=== PATIENT | female | born 2000 | race Caucasian/White ===

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

== ENCOUNTER → 2020-11-01 | Outpatient (CLI) | payer OTHER ==
--- NOTE | 2020-11-01 16:04 | US ---
EXAMINATION TYPE: US OB >= 14 wk fetus DATE OF EXAM: 11/01/2020 COMPARISON: NONE HISTORY: O36.62XO Large for dates 2nd trimester TECHNIQUE: EXAM MEASUREMENTS: GESTATIONAL AGE / DATING Physician Established: 18 weeks 3 days EDC 04-01-21 Dates by LMP: pt unsure of date Dates by First Scan: not available Dates by Current Scan for: (17 weeks/2 days) EDC: 04-09-21 SURVEY IUP: Single PLACENTA: Anterior PREVIA: No previa ELVI: 13.6 cm CERVICAL LENGTH (transabdominal: norm > 3.0cm): 3.4 cm BIOMETRY PRESENTATION: LIE: breech BPD: 3.7 cm 17 weeks / 3 days HC: 14.2 cm 17 weeks / 3 days AC: 11.2 cm 17 weeks / 0 days FL: 2.5 cm 17 weeks / 3 days ESTIMATED WEIGHT IN GRAMS: 187 grams ESTIMATED WEIGHT IN LBS/OZ: 0 lbs. 7 oz. WEIGHT PERCENTAGE BASED ON ESTABLISHED DATE: <3% HC/AC: 1.3 FL/AC: 21.9 HEART RATE: 144 bpm RHYTHM: Normal IMPRESSIONS: 1. Single intrauterine gestation estimated at 17 weeks 2 days gestation based on current ultrasound m easurements. Cardiac activity measures 144 bpm. 2. Based on current measurements weight is less than 3rd percentile. Close monitoring is recomm ended.
== END | disposition home or self-care (01) ==
LOC: RADUSWWP 14:49
PROVIDERS: ATTEND Obstetrics & Gynecology
DX: O36.62X0 Maternal care for excessive fetal growth, second trimester, not applicable or unspecified (principal); Z3A.17 17 weeks gestation of pregnancy
CPT/HCPCS: 76805

== ENCOUNTER 2021-01-04 20:35 | Outpatient (CLI) | payer OTHER ==
[2021-01-04 21:36] VITALS: BP 138/79; PULSE 104; RESP 16; TEMP 97.5
--- NOTE | 2021-01-05 14:03 | P.MSEPDOC ---
Presenting Problems - Arrival Data Date of Arrival on Unit: 01/04/21 Time of Arrival on Unit: 20:35 Mode of Transport: Ambulatory - Complaint OB-Reason for Admission/Chief Complaint: Vaginal Bleeding Comment: Patient arrives to triage to be seen for spotting. Patient states that she. shaved earlier this evening at 1900 and was unsure if bleeding was coming from her vagina or if she nicked something. Patient states there was a scant amount the size of a dime seen on toilet paper after wiping at 1930. Medical History - Information : 2 Para: 1 Term: 1 : 0 Abortions: Spontaneous or Elective: 0 Number of Living Children: 1 - Gestational Age Gestational Age by AJ (wks/days): 28 Weeks and 4 Days Review of Systems - Review of Systems Constitutional: No problems Breast: No problems ENT: No problems Cardiovascular: No problems Respiratory: No problems Gastrointestinal: No problems Genitourinary: No problems Musculoskeletal: No problems Neurological: No problems Skin: No problems Vital Signs - Temperature Temperature: 97.5 F Temperature Source: Temporal Artery Scan - Pulse Right Brachial Pulse Rate: 104 Pulse Assessment Method: Automatic Cuff - Respirations Respiratory Rate: 16 - Blood Pressure Right Arm Blood Pressure: 138/79 Blood Pressure Mean: 98 Blood Pressure Source: Automatic Cuff Medical Screen Scoring (Pre) - Cervical Exam Dilation: Exam Deferred Effacement: Exam Deferred Membranes: Intact - Uterine Contractions Frequency: N/A Duration: N/A Intensity: N/A - Maternal Vital Signs Maternal Temperature: N/A Maternal Blood Pressure: N/A Signs of Preeclampsia: N/A Maternal Respirations: N/A - Maternal Trauma Maternal Trauma: N/A - Assessment - Baby A Baseline FHR: 140 Heart Rate - NICHD Category: Category I (Normal) = 0 NST: Reactive Position: N/A Station: N/A - Total Score - Baby A Total Score - Baby A: 0 - Total Score - Baby B Total Score - Baby B: 0 - Total Score - Baby C Total Score - Baby C: 0 - Level of Risk - Baby A Level of Risk - Baby A: Low (0-5) - Level of Risk - Baby B Level of Risk - Baby B: Low (0-5) - Level of Risk - Baby C Level of Risk - Baby C: Low (0-5) Physician Notification (Pre) - Physician Notified Physician Notified Date: 01/04/21 Physician Notified Time: 21:00 New Order Received: Yes (discharge orders) - Notification Comment Comment: Dr. Perry called with report. Patient presents to triage for spotting, upon exam. no blood noted vaginally, small tear with visible blood noted on righ labia. NST. reactive with no contractions noted. Patient denies pain. No order for vaginal exam. patient approved for discharge, cut should heal on own or use abd cream. Disposition - Disposition OB Disposition: Discharge to home Discharge Date: 01/04/21 Discharge Time: 21:09 I agree with the RN Medical Screening Exam: Yes Case reviewed; plan agreed upon as documented in EMR&OBIX.: Yes Diagnosis: OTHER SKIN CHANGES
== END 2021-01-04 21:09 | disposition home or self-care (01) ==
LOC: FBPOP 20:35
PROVIDERS: ATTEND Obstetrics & Gynecology
DX: O99.713 Diseases of the skin and subcutaneous tissue complicating pregnancy, third trimester (principal); Z3A.28 28 weeks gestation of pregnancy
CPT/HCPCS: 59025; G0463; 99213

== ENCOUNTER → 2021-02-05 | Outpatient (CLI) | payer OTHER ==
--- NOTE | 2021-02-05 12:41 | US ---
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 HEART RATE: 142 bpm RHYTHM: Normal ELVI: 12.3 DIAPHRAGM IMAGED: yes BPP SCORIN. Breathin (1 episode of breathing of 30 second duration in 30 minutes of scanning time) 2. Movement: 2 (at least 3 discrete body movements in 30 minutes) 3. Tone: 2 (1 episode of active flexion/extension of limb) 4. ELVI: 2 (ELVI index > 5cm) fetus had head positioned posteriorly and could not assess nasal bone. TOTAL SCORE: 8 / 8 Impression: Normal range.
== END ==
LOC: FBPOP 11:25
PROVIDERS: ATTEND Obstetrics & Gynecology
DX: O35.8XX1 Maternal care for other (suspected) fetal abnormality and damage, fetus 1 (principal); Z3A.33 33 weeks gestation of pregnancy; Z88.2 Allergy status to sulfonamides
CPT/HCPCS: 76819

== ENCOUNTER 2021-02-12 10:53 | Outpatient (CLI) | payer OTHER ==
--- NOTE | 2021-02-12 11:58 | US ---
EXAMINATION TYPE: US OB BPP wo non-stress DATE OF EXAM: 02/12/2021 COMPARISON: NONE CLINICAL HISTORY: SGA, Increased risk downs. EXAM PERFORMED: Transabdominal (TA) BPP PARAMETERS: PRESENTATION: Vertex LIE: Longitudinal?? HEART RATE: 136 bpm RHYTHM: Normal ELVI: 10.5cm DIAPHRAGM IMAGED: yes BPP SCORIN. Breathin (1 episode of breathing of 30 second duration in 30 minutes of scanning time) 2. Movement: 2 (at least 3 discrete body movements in 30 minutes) 3. Tone: 2 (1 episode of active flexion/extension of limb) 4. ELVI: 2 (ELVI index > 5cm) TOTAL SCORE: 8 / 8 IMPRESSION: 1. Biophysical profile score is 8 out of 8. heart rate is 136 bpm. Amniotic fluid index is 10.5 cm.
--- NOTE | 2021-02-12 12:04 | US ---
EXAMINATION TYPE: US OB >= 14 wk fetus DATE OF EXAM: 02/12/2021 COMPARISON: None CLINICAL HISTORY: EFW EFW TECHNIQUE: Transabdominal (TA) GESTATIONAL AGE / DATING Physician Established (34 weeks/1 days) EDC: 03/25/21 Dates by LMP: LMP unknown Dates by Current Scan (34 weeks/2 days) EDC: 03/24/21 SURVEY IUP: Single PLACENTA: Posterior PREVIA: No Previa ELVI: 10.5 cm Normal CERVICAL LENGTH (transabdominal: norm > 3.0cm): 3.4 cm BIOMETRY PRESENTATION: Vertex LIE: Longitudinal BPD: 8.4 cm 34 weeks / 0 days HC: 31.0 cm 34 weeks / 5 days AC: 29.7 cm 33 weeks / 6 days FL: 6.6 cm 34 weeks / 1 days ESTIMATED WEIGHT IN GRAMS: 2307 grams ESTIMATED WEIGHT IN LBS/OZ: 5 lbs. 1 oz. WEIGHT PERCENTAGE BASED ON ESTABLISHED DATES: 37% HC/AC: 1.04 Normal FL/AC: 22% Normal HEART RATE: 139 bpm RHYTHM: Normal IMPRESSION: 1 single intrauterine in cephalic position with posterior placenta. No evidence of placenta previa. Amniotic fluid adnexa is 10.5 cm. Average ultrasound gestational age is 34 weeks and 2 days. 2. Weight percentage based established dates is 37th percentile.
[2021-02-12 12:15] VITALS: BP 123/71; PULSE 106; RESP 14; TEMP 96.7
--- NOTE | 2021-02-13 09:01 | P.MSEPDOC ---
Presenting Problems - Arrival Data Date of Arrival on Unit: 02/12/21 Time of Arrival on Unit: 11:00 Mode of Transport: Ambulatory - Complaint OB-Reason for Admission/Chief Complaint: Other Comment: Sent from office for BPP Medical History - Information : 2 Para: 1 Term: 1 : 0 Abortions: Spontaneous or Elective: 0 Number of Living Children: 1 - Gestational Age Gestational Age by AJ (wks/days): 34 Weeks and 1 Days - History Comment: SGA Review of Systems - Review of Systems Constitutional: No problems Breast: No problems ENT: No problems Cardiovascular: No problems Respiratory: No problems Gastrointestinal: No problems Genitourinary: No problems Musculoskeletal: No problems Neurological: No problems Skin: No problems Vital Signs - Temperature Temperature: 96.7 F Temperature Source: Tympanic - Pulse Right Brachial Pulse Rate: 106 Pulse Assessment Method: Pulse Oximetry - Respirations Respiratory Rate: 14 Oxygen Delivery Method: Room Air - Blood Pressure Right Arm Blood Pressure: 123/71 Blood Pressure Mean: 88 Blood Pressure Source: Automatic Cuff Medical Screen Scoring (Pre) - Cervical Exam Dilation: Exam Deferred Effacement: Exam Deferred Membranes: Intact - Uterine Contractions Frequency: N/A Duration: N/A Intensity: N/A - Maternal Vital Signs Maternal Temperature: N/A Maternal Blood Pressure: N/A Signs of Preeclampsia: N/A Maternal Respirations: N/A - Maternal Trauma Maternal Trauma: N/A - Assessment - Baby A Baseline FHR: 135 Heart Rate - NICHD Category: Category I (Normal) = 0 NST: Reactive Position: N/A Station: N/A - Total Score - Baby A Total Score - Baby A: 0 - Total Score - Baby B Total Score - Baby B: 0 - Total Score - Baby C Total Score - Baby C: 0 - Level of Risk - Baby A Level of Risk - Baby A: Low (0-5) - Level of Risk - Baby B Level of Risk - Baby B: Low (0-5) - Level of Risk - Baby C Level of Risk - Baby C: Low (0-5) Physician Notification (Pre) - Physician Notified Physician Notified Date: 02/12/21 Physician Notified Time: 12:00 New Order Received: Yes - Notification Comment Comment: d/c home to f/up at regular appt Disposition - Disposition OB Disposition: Discharge to home Discharge Date: 02/12/21 Discharge Time: 12:00 I agree with the RN Medical Screening Exam: Yes Case reviewed; plan agreed upon as documented in EMR&OBIX.: Yes Diagnosis: RELATED CONDITIONS, UNSPECIFIED, THIRD TRIMESTER
== END 2021-02-12 12:00 | disposition home or self-care (01) ==
LOC: FBPOP 10:53
PROVIDERS: ATTEND Obstetrics & Gynecology
DX: O26.93 Pregnancy related conditions, unspecified, third trimester (principal); Z3A.34 34 weeks gestation of pregnancy; Z88.2 Allergy status to sulfonamides
CPT/HCPCS: 59025; 76805; 76819

== ENCOUNTER 2021-02-19 08:55 | Outpatient (CLI) | payer OTHER ==
[2021-02-19 10:21] VITALS: BP 122/68; PULSE 104; RESP 16; TEMP 98.2
--- NOTE | 2021-02-19 10:39 | US ---
EXAMINATION TYPE: US OB BPP wo non-stress DATE OF EXAM: 02/19/2021 COMPARISON: US 02/12/2021 CLINICAL HISTORY: SGA. EXAM PERFORMED: Transabdominal (TA) BPP PARAMETERS: PRESENTATION: Vertex LIE: Longitudinal?? HEART RATE: 140 bpm RHYTHM: Normal ELVI: 11.3 DIAPHRAGM IMAGED: Yes BPP SCORIN. Breathin (1 episode of breathing of 30 second duration in 30 minutes of scanning time) 2. Movement: 2 (at least 3 discrete body movements in 30 minutes) 3. Tone: 2 (1 episode of active flexion/extension of limb) 4. ELVI: 2 (ELVI index > 5cm) TOTAL SCORE: 8 / 8
== END 2021-02-19 10:09 | disposition home or self-care (01) ==
LOC: FBPOP 08:55
PROVIDERS: ATTEND Obstetrics & Gynecology
DX: P05.10 Newborn small for gestational age, unspecified weight (principal); Z88.2 Allergy status to sulfonamides
CPT/HCPCS: 59025; 76819; G0463; 99213

== ENCOUNTER 2021-02-27 11:24 | Outpatient (CLI) | payer OTHER ==
[2021-02-27 14:08] VITALS: BP 116/65; PULSE 82; RESP 16; TEMP 97.1
--- NOTE | 2021-02-27 14:26 | US ---
EXAMINATION TYPE: US OB >= 14 wk fetus DATE OF EXAM: 02/27/2021 COMPARISON: 02/12/2021 CLINICAL HISTORY: growth restriction, TECHNIQUE: Transabdominal (TA) GESTATIONAL AGE / DATING Physician Established: (36 weeks/2 days) EDC: 03/25/2021 Dates by LMP: (36 weeks/2 days) EDC: 03/25/2021 Dates by First Scan: 34 ( weeks/1 day) EDC: 04/09/2021 Dates by Current Scan: (34 weeks/4 days) EDC: 04/06/2021 Beta HCG (if available): NA SURVEY IUP: Single PLACENTA: Posterior PREVIA: No Previa ELVI: 10.1 cm Normal CERVICAL LENGTH (transabdominal: norm > 3.0cm): 3.7 cm BIOMETRY PRESENTATION: Vertex LIE: Longitudinal BPD: 8.80 cm 35 weeks / 4 days HC: 31.14 cm 34 weeks / 6 days AC: 30.27 cm 34 weeks / 2 days FL: 6.79 cm 34 weeks / 6 days ESTIMATED WEIGHT IN GRAMS: 2470.0 grams ESTIMATED WEIGHT IN LBS/OZ: 5 lbs. 7 oz. WEIGHT PERCENTAGE BASED ON ESTABLISHED DATES: 13.4% HC/AC: 1.03 Normal FL/AC: 22.42 Normal HEART RATE: 121 bpm RHYTHM: Normal Single, viable IUP,34 weeks/4 days, EDC: 04/06/2021, [id number]. IMPRESSION: Single viable intrauterine 34 weeks 4 days with a heart rate of 121 bpm
--- NOTE | 2021-02-27 14:40 | US ---
EXAMINATION TYPE: US OB BPP wo non-stress DATE OF EXAM: 02/27/2021 COMPARISON: US CLINICAL HISTORY: growth restriction. SGA EXAM PERFORMED: Transabdominal (TA) BPP PARAMETERS: PRESENTATION: Vertex LIE: Longitudinal?? HEART RATE: 121 bpm RHYTHM: Normal ELVI: 10.1 DIAPHRAGM IMAGED: yes BPP SCORIN. Breathin (1 episode of breathing of 30 second duration in 30 minutes of scanning time) 2. Movement: 2 (at least 3 discrete body movements in 30 minutes) 3. Tone: 2 (1 episode of active flexion/extension of limb) 4. ELVI: 2 (ELVI index > 5cm) TOTAL SCORE: 8 / 8
== END 2021-02-27 13:35 | disposition home or self-care (01) ==
LOC: FBPOP 11:24
PROVIDERS: ATTEND Obstetrics & Gynecology
DX: O26.893 Other specified pregnancy related conditions, third trimester (principal); Z3A.34 34 weeks gestation of pregnancy; Z88.8 Allergy status to other drugs, medicaments and biological substances
CPT/HCPCS: 76805; 76819

== ENCOUNTER 2021-03-01 09:13 | Outpatient (CLI) | payer OTHER ==
[2021-03-01 10:21] LABS: Appearance,Urine Cloudy (Clear); Bacteria,Urine Rare /hpf; Bilirubin,Urine Negative (Negative); Blood,Urine Negative (Negative); Color,Urine Light Yellow; Glucose,Urine (UA) Negative (Negative); Ketones,Urine Negative (Negative); Leukocyte Esterase,Urine Large (Negative); Mucus,Urine Rare /hpf; Nitrite,Urine Negative (Negative); Protein,Urine Negative (Negative); Specific Gravity,Urine 1.009 (1.001-1.035); Squamous Epithelial Cell,Urine 13 /hpf (0-4); Urobilinogen,Urine <2.0 mg/dL (<2.0); WBC,Urine 14 /hpf (0-5)
[2021-03-01 10:38] VITALS: BP 125/72; PULSE 103; RESP 16; TEMP 97.2
--- NOTE | 2021-03-01 11:25 | P.MSEPDOC ---
Presenting Problems - Arrival Data Date of Arrival on Unit: 03/01/21 Time of Arrival on Unit: 09:30 Mode of Transport: Ambulatory - Complaint OB-Reason for Admission/Chief Complaint: Pain Comment: 01/20 lower back pain Medical History - Information : 2 Para: 1 Term: 1 : 0 Abortions: Spontaneous or Elective: 0 Number of Living Children: 1 - Gestational Age Gestational Age by AJ (wks/days): 36 Weeks and 4 Days - History Complications: Prior Review of Systems - Review of Systems Constitutional: No problems Breast: No problems ENT: No problems Cardiovascular: No problems Respiratory: No problems Gastrointestinal: No problems Genitourinary: No problems Musculoskeletal: No problems Neurological: No problems Skin: No problems Vital Signs - Temperature Temperature: 97.2 F Temperature Source: Oral - Pulse Right Brachial Pulse Rate: 103 Pulse Assessment Method: Automatic Cuff - Respirations Respiratory Rate: 16 Oxygen Delivery Method: Room Air - Blood Pressure Right Arm Blood Pressure: 125/72 Blood Pressure Mean: 89 Blood Pressure Source: Automatic Cuff Medical Screen Scoring - Cervical Exam Dilation (cm): 1 Effacement (%): 60 Station: -3 Membranes: Intact - Assessment - Baby A Baseline FHR: 135 Heart Rate - NICHD Category: Category I (Normal) NST: Reactive Physician Notification - Physician Notified Physician Notified Date: 03/01/21 Physician Notified Time: 10:37 Physician: Dr. Vicky Hayward Order Received: Yes - Notification Comment Comment: d/c home Maternal Triage Index - Maternal Triage Index Presenting for scheduled procedure w/no complaint: No - Stat/Priority 1 Stat Priority 1: No - Urgent/Priority 2 Urgent Priority 2: No - Prompt/Priority 3 Prompt Priority 3: No - Non-Urgent/Priority 4 Non-Urgent Priority 4: Yes Criteria Met for Priority 4: common discomforts of Disposition - Disposition OB Disposition: Discharge to home Discharge Date: 03/01/21 Discharge Time: 10:37 I agree with the RN Medical Screening Exam: Yes Case reviewed; plan agreed upon as documented in EMR&OBIX.: Yes Diagnosis: RELATED CONDITIONS, UNSPECIFIED, THIRD TRIMESTER
== END 2021-03-01 10:40 | disposition home or self-care (01) ==
LOC: FBPOP 09:13
PROVIDERS: ATTEND Obstetrics & Gynecology
DX: O26.893 Other specified pregnancy related conditions, third trimester (principal); M54.5 Low back pain; Z3A.36 36 weeks gestation of pregnancy; Z88.2 Allergy status to sulfonamides
CPT/HCPCS: 59025; 81001; G0463; 99213

== ENCOUNTER 2021-03-10 04:40 | Inpatient (IN) | payer OTHER ==
[2021-03-05 14:37] VITALS: BMI 35.3
[2021-03-10] MEDS ORDERED: CITRIC ACID-SODIUM CITRATE 15 ML CUP PO ONE (05:11)
[2021-03-10] MEDS: LACTATED RINGERS 1,000 ML IV SCH ×2 (05:42→11:03)
[2021-03-10 06:29] LABS: Basophils % (A) 0 %; Eosinophils # (A) 0.1 k/uL (0-0.7); Eosinophils % (A) 1 %; HCT 32.7 % (34.0-46.0); Lymphocytes # (A) 2.6 k/uL (1.0-4.8); Lymphocytes % (A) 32 %; MCH 30.3 pg (25.0-35.0); MCHC 33.6 g/dL (31.0-37.0); MCV 90.1 fL (80.0-100.0); Mean Platelet Volume 9.1; Monocytes # (A) 0.5 k/uL (0-1.0); Monocytes % (A) 6 %; Neutrophils # (A) 4.9 k/uL (1.3-7.7); Neutrophils % (A) 59 %; Platelet Count 315 k/uL (150-450); RBC 3.63 m/uL (3.80-5.40); RDW 13.6 % (11.5-15.5); WBC 8.3 k/uL (3.8-10.6)
[2021-03-10] MEDS ORDERED: SUCCINYLCHOLINE CHLORIDE 100 MG/5 ML SYR IV ONE (08:00)
[2021-03-10] MEDS ORDERED: MIDAZOLAM 2 MG/2 ML VIAL ONE (08:00)
[2021-03-10] MEDS ORDERED: PROPOFOL 10 MG/ML 20 ML VIAL IV ONE (08:00)
[2021-03-10] MEDS ORDERED: OXYTOCIN 30 UNITS/500 ML NS BAG IV ONE (08:00)
[2021-03-10] MEDS ORDERED: HYDROmorphone (PF) 1 MG/ML ONE (08:00)
[2021-03-10] MEDS ORDERED: KETOROLAC 15 MG/ML 1 ML VIAL ONE (08:00)
[2021-03-10] MEDS ORDERED: METOCLOPRAMIDE 5 MG/ML 2 ML VIAL IVP PRN (08:41)
[2021-03-10] MEDS ORDERED: diphenhydrAMINE 25 MG CAP PO PRN (08:41)
[2021-03-10] MEDS ORDERED: diphenhydrAMINE 50 MG/ML 1 ML VIAL IVP PRN ×2 (08:41)
[2021-03-10] MEDS ORDERED: ONDANSETRON 4 MG/2 ML VIAL IVP PRN (08:41)
[2021-03-10] MEDS ORDERED: ZOLPIDEM 5 MG TAB PO PRN (08:41)
[2021-03-10] MEDS ORDERED: diphenhydrAMINE 50 MG CAP PO PRN (08:41)
[2021-03-10] MEDS ORDERED: NALOXONE 0.4 MG/ML 1 ML VIAL IV PRN ×2 (08:41→08:43)
[2021-03-10] MEDS ORDERED: HYDROmorphone PCA 10 MG/50 ML BAG IV PRN (08:43)
[2021-03-10] MEDS ORDERED: LACTATED RINGERS 1,000 ML IV SCH (08:45)
--- NOTE | 2021-03-10 08:45 | P.HPOB ---
History of Present Illness H&P Date: 03/10/21 Chief Complaint: Interim at term: IUGR Negative is a 20-year-old at 37 weeks gestation who ryes for repeat section due to IUGR. Patient has had her baby measuring less than the 10th percentile and with potential absent nasal bone increased risk for Down syndrome we are moving forward with repeat aced on [facility] recommendations. All questions are answered for her risks/benefits/alternatives reviewed with the patient in detail all questions were answered for her prior to proceeding to the operative room. Precis history was otherwise unremarkable we did follow closely with maternal- medicine and she did receive nonstress tests and biophysical profiles through the latter part of the . Otherwise she is doing well at this time. Past Medical History Past Medical History: No Reported History History of Any Multi-Drug Resistant Organisms: None Reported Past Surgical History: Section Past Anesthesia/Blood Transfusion Reactions: No Reported Reaction Past Psychological History: No Psychological Hx Reported Smoking Status: Never smoker Past Alcohol Use History: None Reported Past Drug Use History: None Reported - Past Family History Mother Family Medical History: No Reported History Medications and Allergies Home Medications Medication Instructions Recorded Confirmed Type No Known Home Medications 02/12/21 03/10/21 History Allergies Allergy/AdvReac Type Severity Reaction Status Date / Time sulfamethoxazole AdvReac Swelling Verified 03/10/21 08:09 [From Bactrim] trimethoprim [From Bactrim] AdvReac Swelling Verified 03/10/21 08:09 Exam Osteopathic Statement: *. No significant issues noted on an osteopathic structural exam other than those noted in the History and Physical/Consult. Vital Signs Temp Pulse Resp BP Pulse Ox 03/10/21 05:01 97.2 F L 76 16 126/82 96 Intake and Output 03/09/21 03/10/21 03/10/21 22:59 06:59 14:59 Other: # Voids 1 Weight 93.44 kg - OBG Physical Exam Breast: both: normal (no masses) Abdomen: bowel sounds normal, no diffuse tenderness, no bruit present, no guarding noted, no hepatomegaly, no splenomegaly, no mass Vulva: both: normal Vagina: normal moisture, no discharge Cervix: no lesion, no discharge Uterus: normal size, normal contour Adnexa: both: normal Anus/Rectum: normal perianal skin, no rectal mass, no hemorrhoids, heme negative Results Result Diagrams: 03/10/21 05:34 Abnormal Lab Results - Last 24 Hours (Table) 03/10/21 Range/Units 05:34 RBC 3.63 L (3.80-5.40) m/uL Hgb 11.0 L (11.4-16.0) gm/dL Hct 32.7 L (34.0-46.0) %
--- NOTE | 2021-03-10 08:48 | P.OP ---
Date of Procedure: 03/10/21 Preoperative Diagnosis: Intrauterine at term: IUGR Postoperative Diagnosis: Same with postop hemorrhage secondary to losing IV access Procedure(s) Performed: Repeat low transverse section Anesthesia: AGUSTIN Surgeon: Jose Griffin [employer] Cook #1: Chanel Perry Estimated Blood Loss (ml): 1,400 IV fluids (ml): 800 Urine output (ml): 150 Pathology: other (Placenta) Condition: stable Disposition: floor Operative Findings: Viable female taken to special care nursery Description of Procedure: May was taken to the operating suite where a general anesthetic was found be adequate. She was prepped and draped in the normal sterile fashion and placed in dorsal supine position with leftward tilt. Initially a Pfannenstiel skin incision was made and this incision was then carried through to underlying layer of the fashion with second knife. Fascia was then nicked in midline and this opening was extended laterally with Scales scissors. Superior and inferior aspect of this incision were then grasped tented up and bluntly and sharply dissected off the rectus muscles. Rectus muscles were then divided the midline and sharp dissection through the peritoneum was performed. This opening was then again extended superiorly and inferiorly with good visualization of both bowel and bladder. Bladder blade was then placed and the bladder flap identified. It was entered with Metzenbaum scissors carried across face uterus and bluntly dissected out of the operative field. Knife was then used to incise uterus. Hemostat was used to fully developed incision and then it was extended bluntly. Head was then H medically delivered followed by anterior posterior shoulders delivery. Mouth and nares were bulb suctioned and nursery personnel was present to assume care. Placenta was then delivered intact. At this point we delivered the uterus was much boggy years and we're expecting and anesthesia verify that the IV access was lost she did receive some Pitocin and as we are getting ready to do I am Pitocin and they were able to restart the IV resulting in immediate clamping down of her uterus. Once this was completed the uterus was closed with 0 Vicryl suture in running fashion in 2 layers. Once excellent hemostasis was obtained blood and debris was suctioned from the posterior cul-de-sac and uterus was reinserted into the abdomen. Peritoneal layer was then reapproximated with 0 Vicryl suture. Fascial layer was closed with 0 Vicryl suture. One layer of 3-0 Vicryl placed in deep subcuticular tissues to reapproximate skin and close space. Skin was then closed with 3-0 Vicryl subcuticularly. Sponge, lap, needle counts were all correct 2. Patient was then taken to the recovery room in stable and satisfactory condition.
[2021-03-10] MEDS: KETOROLAC 15 MG/ML 1 ML VIAL IVP SCH ×2 (15:44→22:04)
[2021-03-10] MEDS: SENNOSIDES-DOCUSATE SODIUM 1 EACH TAB PO SCH (22:08)
[2021-03-11 06:48] LABS: Basophils % (A) 0 %; Eosinophils # (A) 0.1 k/uL (0-0.7); Eosinophils % (A) 1 %; HCT 27.9 % (34.0-46.0); Lymphocytes # (A) 2.2 k/uL (1.0-4.8); Lymphocytes % (A) 18 %; MCH 30.6 pg (25.0-35.0); MCHC 33.6 g/dL (31.0-37.0); MCV 90.9 fL (80.0-100.0); Mean Platelet Volume 9.6; Monocytes # (A) 0.6 k/uL (0-1.0); Monocytes % (A) 5 %; Neutrophils # (A) 9.3 k/uL (1.3-7.7); Neutrophils % (A) 75 %; Platelet Count 253 k/uL (150-450); RBC 3.07 m/uL (3.80-5.40); RDW 13.8 % (11.5-15.5); WBC 12.3 k/uL (3.8-10.6)
[2021-03-11 06:54] LABS: HGB 9.4 gm/dL (11.4-16.0)
--- NOTE | 2021-03-11 08:10 | P.PNOBGPC ---
Subjective - Subjective Principal diagnosis: Postop day 1 Interval history: Negative is doing very well postop day 1. She is ambulating, voiding and tolerating her diet. She voices no complaints. Vital signs are stable and afebrile. Heart regular, lungs clear, extremities without pain. Abdomen soft bowel sounds are noted. We'll plan to remove the dressing later this morning and assess as needed. Otherwise she is doing very well and all questions are answered for her at this time. Patient reports: Reports appetite normal, Reports voiding normally, Reports pain well controlled, Reports ambulating normally [place]: doing well Objective - Vital Signs Latest vital signs: Vital Signs Temp Pulse Resp BP Pulse Ox 03/11/21 04:00 98.6 F 90 16 116/78 03/11/21 00:00 98.6 F 89 16 124/80 03/10/21 19:38 98.5 F 96 16 117/80 99 03/10/21 16:00 97.8 F 93 16 125/80 98 03/10/21 12:00 98.0 F 80 16 104/69 98 03/10/21 10:49 96.5 F L 97 16 144/92 99 03/10/21 10:20 81 16 144/87 99 03/10/21 09:50 78 16 139/85 97 03/10/21 09:34 83 16 150/86 97 03/10/21 09:19 84 18 149/86 98 03/10/21 09:04 77 18 145/84 97 03/10/21 08:49 96.3 F L 107 H 20 138/83 97 Intake and Output 03/10/21 03/11/21 03/11/21 22:59 06:59 14:59 Output Total 500 450 Balance -500 -450 Output: Urine 500 450 Uretheral ([place]) 500 - Exam Lungs: bilateral: normal Chest: Normal S1, Normal S2 Extremities: Present: normal Abdomen: Present: normal appearance, soft. Absent: distention, tenderness Incision: Present: normal, dry, intact Uterus: Present: normal, firm - Labs Labs: Abnormal Lab Results - Last 24 Hours (Table) 03/11/21 Range/Units 06:31 WBC 12.3 H (3.8-10.6) k/uL RBC 3.07 L (3.80-5.40) m/uL Hgb 9.4 L D (11.4-16.0) gm/dL Hct 27.9 L (34.0-46.0) % Neutrophils # 9.3 H (1.3-7.7) k/uL
[2021-03-11] MEDS: SENNOSIDES-DOCUSATE SODIUM 1 EACH TAB PO SCH (08:59)
[2021-03-11 11:37] VITALS: RESP 14
[2021-03-11 12:11] VITALS: BP 121/75; PULSE 98; TEMP 98.5
--- NOTE | 2021-03-11 12:26 | P.DS ---
Providers Date of admission: 03/10/21 04:40 Expected date of discharge: 03/11/21 Attending physician: Jose Griffin Primary care physician: Stated None Hospital Course: Negative is doing very well this afternoon. She is still post op day 1, however, her baby is being transferred [facility] due to a pneumothorax and we'll therefore discharge her to allow her to be able to be with the baby. Prescriptions for [place] and Motrin are 40 to the pharmacy and all questions were answered for her prior to discharge. Discharge instructions are otherwise reviewed and she is stable for discharge this time. She'll follow up with me in 1 week. Patient Condition at Discharge: Good Plan - Discharge Summary Discharge Rx Participant: No New Discharge Prescriptions: New Ibuprofen [Motrin] 600 mg PO Q6HR PRN #30 tab PRN Reason: Pain HYDROcodone/APAP 5-325MG [[place] 5-325] 1 tab PO Q4HR PRN #30 tab PRN Reason: Pain Discharge Medication List HYDROcodone/APAP 5-325MG [[place] 5-325] 1 tab PO Q4HR PRN #30 tab 03/11/21 [Rx] Ibuprofen [Motrin] 600 mg PO Q6HR PRN #30 tab 03/11/21 [Rx] Follow up Appointment(s)/Referral(s): Jose Griffin DO [Doctor of Osteopathic Medicine] - 04/22/21 11:00 am (First follow up appointment WednesdayMarch 24 @ 09:00 am) Activity/Diet/Wound Care/Special Instructions: No heavy Lifting, limit stairs and driving, and pelvic rest. If any high temperatures, heavy bleeding, or severe pain call my office Discharge Disposition: HOME SELF-CARE
[2021-03-11] MEDS ORDERED: IBUPROFEN 600 MG TAB PO SCH (13:00)
[2021-03-11] MEDS ORDERED: SENNOSIDES-DOCUSATE SODIUM 1 EACH TAB PO SCH (21:00)
== END 2021-03-11 13:42 | disposition home or self-care (01) | DRG 788 ==
LOC: 4FBP 04:40
PROVIDERS: ADMIT Obstetrics & Gynecology; ATTEND Obstetrics & Gynecology
PROC: 10D00Z1 Extraction of Products of Conception, Low, Open Approach (ICD-10-PCS; principal; 2021-03-10 08:00)
DX: O34.211 Maternal care for low transverse scar from previous cesarean delivery (principal); O36.5990 Maternal care for other known or suspected poor fetal growth, unspecified trimester, not applicable or unspecified; Z37.0 Single live birth; Z3A.37 37 weeks gestation of pregnancy
CPT/HCPCS: 85025; 86850; 86900; 86901; 88307

== ENCOUNTER 2022-06-04 04:42 | Emergency (ER) | payer OTHER ==
[2022-06-04 04:45] VITALS: BP 129/78; PULSE 66; RESP 22; TEMP 98.1
[2022-06-04 05:21] LABS: Appearance,Urine Cloudy (Clear); Bacteria,Urine Rare /hpf; Bilirubin,Urine Negative (Negative); Blood,Urine Trace (Negative); Color,Urine Colorless; Glucose,Urine (UA) Negative (Negative); Ketones,Urine Negative (Negative); Leukocyte Esterase,Urine Large (Negative); Nitrite,Urine Negative (Negative); Protein,Urine Negative (Negative); RBC,Urine 6 /hpf (0-5); Specific Gravity,Urine 1.007 (1.001-1.035); Squamous Epithelial Cell,Urine 2 /hpf (0-4); Urobilinogen,Urine <2.0 mg/dL (<2.0); WBC,Urine 110 /hpf (0-5)
[2022-06-04] MEDS ORDERED: PHENAZOPYRIDINE 100 MG TAB PO STA (05:40)
[2022-06-04] MEDS ORDERED: NITROFURANTOIN MONOHYD/M-CRYST 100 MG CAP PO STA (05:41)
--- NOTE | 2022-06-04 05:42 | ED ---
Female Urogenital HPI - General Chief complaint: Urogenital Stated complaint: UTI Time Seen by Provider: 06/04/22 05:10 Source: patient Mode of arrival: ambulatory Limitations: no limitations - History of Present Illness Initial comments: This patient is a 22-year-old woman who presents to evaluation because she suspects she has urinary tract infection. She states that starting around [place] she was having some burning with urination. She tried taking Azo at home for the symptoms and initially it improved but when she stopped the medication the symptoms recurred area she has not noted fever or chills. No vaginal discharge. No dyspareunia. She is not having any back or abdominal pain. MD Complaint: dysuria -: days(s) Quality: burning Consistency: intermittent Improves with: none Worsens with: urination Patient : No - Related Data Previous Rx's Medication Instructions Recorded HYDROcodone/APAP 5-325MG [[place] 1 tab PO Q4HR PRN #30 tab 03/11/21 5-325] Ibuprofen [Motrin] 600 mg PO Q6HR PRN #30 tab 03/11/21 Nitrofurantoin Monohyd/M-Cryst 100 mg PO Q12HR #6 cap 06/04/22 [Macrobid] Phenazopyridine [Pyridium] 100 mg PO TID #6 tablet 06/04/22 Allergies Allergy/AdvReac Type Severity Reaction Status Date / Time sulfamethoxazole AdvReac Swelling Verified 06/04/22 04:45 [From Bactrim] trimethoprim [From Bactrim] AdvReac Swelling Verified 06/04/22 04:45 Review of Systems ROS Statement: Those systems with pertinent positive or pertinent negative responses have been documented in the HPI. ROS Other: All systems not noted in ROS Statement are negative. Constitutional: Denies: fever, chills Gastrointestinal: Denies: abdominal pain, vomiting, diarrhea Genitourinary: Reports: dysuria, frequency. Denies: discharge, abnormal menses Musculoskeletal: Denies: back pain Skin: Denies: rash Past Medical History Past Medical History: No Reported History History of Any Multi-Drug Resistant Organisms: None Reported Past Surgical History: Section Past Anesthesia/Blood Transfusion Reactions: No Reported Reaction Past Psychological History: No Psychological Hx Reported Smoking Status: Never smoker Past Alcohol Use History: None Reported Past Drug Use History: None Reported - Past Family History Mother Family Medical History: No Reported History General Exam Limitations: no limitations General appearance: alert, in no apparent distress Eye exam: Present: normal appearance GI/Abdominal exam: Present: soft. Absent: distended, tenderness, guarding, rebound, rigid, mass Back exam: Present: normal inspection. Absent: CVA tenderness (R), CVA tenderness (L) Neurological exam: Present: alert Skin exam: Present: warm, dry, intact, normal color. Absent: rash Course Vital Signs 06/04/22 04:42 Temperature 98.1 F Pulse Rate 66 Respiratory 22 Rate Blood Pressure 129/78 O2 Sat by Pulse 99 Oximetry Medical Decision Making - Lab Data Lab Results 06/04/22 06/04/22 Range/Units 04:50 04:50 Urine Color Colorless Urine Appearance Cloudy H (Clear) Urine pH 7.0 (5.0-8.0) Ur Specific [place] 1.007 (1.001-1.035) Urine Protein Negative (Negative) Urine Glucose (UA) Negative (Negative) Urine Ketones Negative (Negative) Urine Blood Trace H (Negative) Urine Nitrite Negative (Negative) Urine Bilirubin Negative (Negative) Urine Urobilinogen <2.0 (<2.0) mg/dL Ur Leukocyte Esterase Large H (Negative) Urine RBC 6 H (0-5) /hpf Urine WBC 110 H (0-5) /hpf Ur Squamous Epith Cells 2 (0-4) /hpf Urine Bacteria Rare H (None) /hpf Urine HCG, Qual Not Detected (Not Detectd) Disposition Clinical Impression: Urinary tract infection Disposition: HOME SELF-CARE Condition: Good Instructions (If sedation given, give patient instructions): Urinary Tract Infection in Women (ED) Prescriptions: Nitrofurantoin Monohyd/M-Cryst [Macrobid] 100 mg PO Q12HR #6 cap Phenazopyridine [Pyridium] 100 mg PO TID #6 tablet Is patient prescribed a controlled substance at d/c from ED?: No Referrals: None,Stated [Primary Care Provider] - 1-2 days
== END 2022-06-04 05:53 | disposition home or self-care (01) ==
LOC: EC 04:42
DX: N39.0 Urinary tract infection, site not specified (principal); Z88.2 Allergy status to sulfonamides
CPT/HCPCS: 81001; 81025; 87086; 99283

== ENCOUNTER 2022-08-19 03:43 | Emergency (ER) | payer OTHER ==
[2022-08-19 03:56] VITALS: BP 106/70; PULSE 99; RESP 18; TEMP 98.1
[2022-08-19] MEDS ORDERED: ACETAMINOPHEN TAB 500 MG TAB PO STA (04:17)
[2022-08-19] MEDS ORDERED: IBUPROFEN 600 MG TAB PO STA (04:17)
--- NOTE | 2022-08-19 04:19 | ED ---
Fever HPI - General Chief Complaint: Fever Stated Complaint: Fever Time Seen by Provider: 08/19/22 04:09 Source: patient, RN notes reviewed, old records reviewed Mode of arrival: ambulatory Limitations: no limitations - History of Present Illness Initial Comments: This is a 22-year-old female to the emergency department for evaluation. Patient has no significant medical history takes no medications. Patient does have positive fever positive flu here in the ER. Flu exposure. Patient has no other recent sick contacts or travel history aside from patient's family. MD Complaint: fever, malaise, weakness -: days(s) Temperature Source: subjective Context: sick contacts Associated Symptoms: chills, rigors, myalgias, cough Treatments Prior to Arrival: none - Related Data Previous Rx's Medication Instructions Recorded HYDROcodone/APAP 5-325MG [[place] 1 tab PO Q4HR PRN #30 tab 03/11/21 5-325] Ibuprofen [Motrin] 600 mg PO Q6HR PRN #30 tab 03/11/21 Nitrofurantoin Monohyd/M-Cryst 100 mg PO Q12HR #6 cap 06/04/22 [Macrobid] Phenazopyridine [Pyridium] 100 mg PO TID #6 tablet 06/04/22 Allergies Allergy/AdvReac Type Severity Reaction Status Date / Time sulfamethoxazole AdvReac Swelling Verified 08/19/22 03:53 [From Bactrim] trimethoprim [From Bactrim] AdvReac Swelling Verified 08/19/22 03:53 Review of Systems ROS Statement: Those systems with pertinent positive or pertinent negative responses have been documented in the HPI. ROS Other: All systems not noted in ROS Statement are negative. Past Medical History Past Medical History: No Reported History History of Any Multi-Drug Resistant Organisms: None Reported Past Surgical History: Section Past Anesthesia/Blood Transfusion Reactions: No Reported Reaction Past Psychological History: No Psychological Hx Reported Smoking Status: Never smoker Past Alcohol Use History: None Reported Past Drug Use History: None Reported - Past Family History Mother Family Medical History: No Reported History General Exam Limitations: no limitations General appearance: alert, in no apparent distress Head exam: Present: atraumatic, normocephalic, normal inspection Eye exam: Present: normal appearance, PERRL, EOMI. Absent: scleral icterus, conjunctival injection, periorbital swelling ENT exam: Present: normal exam, mucous membranes moist Neck exam: Present: normal inspection. Absent: tenderness, meningismus, lymphadenopathy Respiratory exam: Present: normal lung sounds bilaterally. Absent: respiratory distress, wheezes, rales, rhonchi, stridor Cardiovascular Exam: Present: regular rate, normal rhythm, normal heart sounds. Absent: systolic murmur, diastolic murmur, rubs, gallop, clicks GI/Abdominal exam: Present: soft, normal bowel sounds. Absent: distended, tenderness, guarding, rebound, rigid Extremities exam: Present: normal inspection, full ROM, normal capillary refill. Absent: tenderness, pedal edema, joint swelling, calf tenderness Back exam: Present: normal inspection Neurological exam: Present: alert, oriented X3, CN II-XII intact Psychiatric exam: Present: normal affect, normal mood Skin exam: Present: warm, dry, intact, normal color. Absent: rash Course Vital Signs 08/19/22 03:53 Temperature 98.1 F Pulse Rate 99 Respiratory 18 Rate Blood Pressure 106/70 O2 Sat by Pulse 98 Oximetry - Reevaluation(s) Reevaluation #1: 08/23/22 Medical record is reviewed Patient symptoms improved here in the ER Patient informed of results and questions answered Medical Decision Making - Medical Decision Making 22 female to the emergency department for evaluation of fever cough bodyaches congestions positive for flu patient feeling improved here in the ER can be discharged home as MEMBERS CURRENTLY DO HAVE INFLUENZA - Lab Data Lab Results 08/19/22 Range/Units 04:31 Influenza Type A (PCR) Detected A (Not Detectd) Influenza Type B (PCR) Not Detected (Not Detectd) RSV (PCR) Not Detected (Not Detectd) SARS-CoV-2 (PCR) Not Detected (Not Detectd) - Radiology Data Radiology results: report reviewed (Chest x-rays negative for acute disease), image reviewed Disposition Clinical Impression: Influenza, Fever Disposition: HOME SELF-CARE Condition: Good Instructions (If sedation given, give patient instructions): Fever in Children (ED), Influenza (ED) Is patient prescribed a controlled substance at d/c from ED?: No Referrals: Yohan Moore MD [Primary Care Provider] - 1-2 days Time of Disposition: 06:00
--- NOTE | 2022-08-19 05:01 | XR ---
EXAMINATION TYPE: XR chest 1V portable DATE OF EXAM: 08/19/2022 COMPARISON: 01/06/2017 HISTORY: Cough TECHNIQUE: FINDINGS: Heart is normal. Lungs are clear. Diaphragm is normal. Bony thorax is normal. IMPRESSION: Normal chest. No change.
== END 2022-08-19 06:12 | disposition home or self-care (01) ==
LOC: EC 03:43
DX: J10.1 Influenza due to other identified influenza virus with other respiratory manifestations (principal); Z20.822 Contact with and (suspected) exposure to COVID-19; Z88.2 Allergy status to sulfonamides
CPT/HCPCS: 71045; 87636; 99283